=== PATIENT | male | born 1945 ===

== ENCOUNTER 2021-04-18 18:40 | Inpatient (IN) | payer OTHER ==
[2021-04-18] MEDS ORDERED: Acetaminophen 500 MG TAB ONE (18:56)
[2021-04-18] MEDS ORDERED: cefTRIAXone\\ROCEPHIN 1 GM VIAL ONE (18:56)
[2021-04-18 19:36] LABS: Hemoglobin 14.2 g/dL (14.0-18.0); Mean Corpuscular HGB CONC 34.5 g/dL (32.0-36.0); Mean Corpuscular Hemoglobin 30.5 pg (27.0-31.0); Mean Corpuscular Volume 88.5 fL (78.0-98.0); RBC Distribution Width 11.7 % (11.5-14.5); Red Blood Cell (RBC) Count 4.65 mill/uL (4.70-6.10); White Blood Cell (WBC) Count 9.9 thou/uL (4.8-10.8)
[2021-04-18 19:37] LABS: #Lymphocytes 0.8 thou/uL (1.20-3.40); #Monocytes 0.8 thou/uL (0.11-0.59); #Neutrophils 8.4 thou/uL (1.40-6.50); %Basophils 0.2 % (0.0-1.0); %Eosinophils 0.1 % (0.0-10.0); %Monocytes 7.6 % (0.0-10.0); %Neutrophils 84.2 % (42.0-75.0)
[2021-04-18 19:42] LABS: ALT (SGPT) 37 U/L (8-55); AST (SGOT) 34 U/L (5-34); Albumin 4.1 g/dL (3.4-4.8); Alkaline Phosphatase 78 U/L (40-110); Anion Gap 11 mmol/L (10-20); BUN (Urea Nitrogen) 14 mg/dL (8.4-25.7); Bilirubin, Total 0.8 mg/dL (0.2-1.2); Calc. Creatinine Clearance 0 mL/min (70-130); Calcium 9.2 mg/dL (7.8-10.44); Carbon Dioxide 22 mmol/L (23-31); Chloride 106 mmol/L (98-107); Globulin 3.3 g/dL (2.4-3.5); Glucose 146 mg/dL (83-110); Potassium 3.6 mmol/L (3.5-5.1); Protein, Total 7.4 g/dL (5.8-8.1); Sodium 135 mmol/L (136-145)
[2021-04-18 19:51] LABS: MDiff Complete? YES; Platelet Count 106 thou/uL (130-400); Platelet Morphology Comment Appears Decreased; Polychromasia SLIGHT = 2-3 cells (100X) (0-2/hpf)
[2021-04-18] MEDS ORDERED: Vancomycin 1 GM/200 ML BAG ONE (19:54)
[2021-04-18 20:26] LABS: Bacteria/HPF 3+ HPF (None Seen); Bilirubin Negative (Negative); Blood, Urine 3+ (Negative); Clarity Clear (Clear); Glucose, Urine (Dipstick) Normal (Negative); Ketone, Urine Negative (Negative); Leukocyte 500 Leu/uL (Negative); Nitrite Negative (Negative); Protein, Urine (Dipstick) 50 mg/dL (Neg-Trace); RBC/HPF 21-50 HPF (0-3); Specific Gravity, Urine 1.033 (1.002-1.036); Squamous Epithelial 0-3 HPF (0-3); WBC/HPF Greater than 50 HPF (0-3)
[2021-04-18 22:05] VITALS: BMI 27.2
[2021-04-18] MEDS ORDERED: Morphine 2 MG/ML VIAL SLOW IVP PRN (22:56)
[2021-04-18 22:59] LABS: Lactic Acid 1.6 mmol/L (0.5-2.2)
[2021-04-18] MEDS ORDERED: Ondansetron PF 4 MG/2 ML Vial IVP PRN (22:59)
[2021-04-18] MEDS ORDERED: HYDROcodone/Acetaminophen 5/325 mg Tablet PO PRN (22:59)
[2021-04-18] MEDS ORDERED: Acetaminophen 650 MG Suppository PR PRN (22:59)
[2021-04-18] MEDS ORDERED: Ondansetron ODT 4 MG TAB PO PRN (22:59)
[2021-04-18] MEDS: Acetaminophen 325 MG TAB PO PRN (23:46)
[2021-04-18] MEDS: Sodium Chloride 0.9% 1,000 ML IV SCH (23:46)
[2021-04-18] MEDS ORDERED: Melatonin 3 MG TAB PO PRN (23:52)
[2021-04-19 07:09] LABS: #Lymphocytes 1.1 thou/uL (1.20-3.40); #Neutrophils 7.2 thou/uL (1.40-6.50); %Basophils 0.3 % (0.0-1.0); %Eosinophils 0.4 % (0.0-10.0); %Lymphocytes 11.9 % (21.0-51.0); %Neutrophils 76.4 % (42.0-75.0); Hemoglobin 13.4 g/dL (14.0-18.0); Mean Corpuscular HGB CONC 33.5 g/dL (32.0-36.0); Mean Corpuscular Hemoglobin 29.9 pg (27.0-31.0); Mean Corpuscular Volume 89.1 fL (78.0-98.0); Mean Platelet Volume 8.2 fL (7.4-10.4); Platelet Count 106 thou/uL (130-400); RBC Distribution Width 11.6 % (11.5-14.5); Red Blood Cell (RBC) Count 4.48 mill/uL (4.70-6.10); White Blood Cell (WBC) Count 9.4 thou/uL (4.8-10.8)
[2021-04-19 07:26] LABS: Anion Gap 10 mmol/L (10-20); BUN (Urea Nitrogen) 10 mg/dL (8.4-25.7); Calc. Creatinine Clearance 88 mL/min (70-130); Calcium 8.9 mg/dL (7.8-10.44); Carbon Dioxide 24 mmol/L (23-31); Chloride 108 mmol/L (98-107); Glucose 98 mg/dL (83-110); Potassium 3.6 mmol/L (3.5-5.1); Sodium 138 mmol/L (136-145)
[2021-04-19] MEDS: Enoxaparin Sodium 40 MG/0.4 ML SYRINGE SC SCH (09:38)
[2021-04-19 12:00] LABS: SARS-CoV-2 PCR by NAA Not Detected (NotDetected)
[2021-04-19] MEDS: Acetaminophen 325 MG TAB PO PRN (15:11)
[2021-04-19] MEDS ORDERED: traMADol HCl 50 MG TAB PO PRN (16:38)
[2021-04-19] MEDS: Sodium Chloride 0.9% 1,000 ML IV SCH ×2 (18:44→20:42)
[2021-04-19] MEDS ORDERED: Prazosin HCl 1 MG CAP PO SCH (21:00)
[2021-04-20] MEDS: Sodium Chloride 0.9% 1,000 ML IV SCH (06:10)
[2021-04-20] MEDS ORDERED: FLUoxetine HCl 20 MG CAP PO SCH (09:00)
[2021-04-20] MEDS ORDERED: Allopurinol 100 MG TAB PO SCH (09:00)
[2021-04-20] MEDS ORDERED: Finasteride 5 MG TAB PO SCH (09:00)
[2021-04-20] MEDS ORDERED: Tamsulosin HCl 0.4 MG CAP PO SCH (09:00)
[2021-04-20] MEDS ORDERED: Amlodipine 10 MG TAB PO SCH (09:00)
[2021-04-20] MEDS: Enoxaparin Sodium 40 MG/0.4 ML SYRINGE SC SCH (10:28)
[2021-04-20 12:41] VITALS: BP 157/76; TEMP 98.3
== END 2021-04-20 12:09 | disposition home or self-care (01) | DRG 728 ==
LOC: ERS 18:40 → T4-B 20:05
PROVIDERS: ADMIT Internal Medicine; ATTEND Internal Medicine
DX: N45.2 Orchitis (principal); E87.2 Acidosis; Z20.822 Contact with and (suspected) exposure to COVID-19; I10 Essential (primary) hypertension; F32.9 Major depressive disorder, single episode, unspecified; F41.9 Anxiety disorder, unspecified; N40.0 Benign prostatic hyperplasia without lower urinary tract symptoms
CPT/HCPCS: 36415; 76870; 80048; 80053; 81003; 81015; 83605; 85025; 87040; 87086; 93976; J0696; J1956; J3370; U0003; U0005